=== PATIENT | male | born 1965 | race Caucasian/White ===

== ENCOUNTER 2022-06-14 10:52 | Emergency (ER) | payer SELFPAY ==
[~2022-06-14] VITALS: Ht 182.9 cm; Wt 81.6 kg
[2022-06-14] MEDS ORDERED: ALBUTEROL2.5 MG/0.5 PEG (12:05)
[2022-06-14] MEDS ORDERED: ZESTRIL40 MG PO (12:05)
[2022-06-14] MEDS ORDERED: PROVENTIL HFA6.7 GM INH (12:05)
== END 2022-06-14 12:51 | disposition home or self-care (01) ==
LOC: ER 11:07
DX: Z76.0 Encounter for issue of repeat prescription (principal); I10 Essential (primary) hypertension; J45.909 Unspecified asthma, uncomplicated
CPT/HCPCS: 99283